=== PATIENT | male | born 1960 | race African-American/Black ===

== ENCOUNTER 2017-03-17 14:36 | Emergency (ER) | payer OTHER ==
[~2017-03-17] VITALS: Ht 188 cm; Wt 86.2 kg
[~2017-03-17 14:36] MED LIST: ALLOPURINOL100 M1 ORAL; ALLOPURINOL300 M1 ORAL; BACTRIM DS TAB1 EAC1 ORAL; CHOLESTEROL; COLCHICINE0.6 M1 PO; COLCRYS0.6 M1 PO; CRIXIVAN ORAL; IBUPROFEN600 MG PO; INDOMETHACIN50 MG PO; NKM; NORCO 5-325 TA1 EACH ORAL; UNOBMED
[2017-03-17 14:46] VITALS: BP 118/74
[2017-03-17 15:14] VITALS: BP 118/74
--- NOTE | 2017-03-17 21:00 | Emergency Room Report ---
History of Present Illness General Chief Complaint: Medical Clearance Source: Patient Present Illness HPI The patient is a 56-year-old male presenting in custody for medical clearance. The patient states he did not want to come in and denies any symptoms. The police state that the patient had a bag of heroin in his mouth which he spit out. The patient denies swallowing any drugs. He denies using any drugs besides marijuana. He denies any medical history. He denies any symptoms including nausea, vomiting, dizziness, blurred vision, palpitations, chest pain, shortness of breath Allergies: Coded Allergies: No Known Allergies (Unverified , 11/14/13) Patient History Past Medical History: see triage record Pertinent Family History: none Reviewed Nursing Documentation: PMH: Agreed, PSxH: Agreed Review of Systems All Other Systems: negative except mentioned in HPI Physical Exam Vital Signs Date Time Temp Pulse Resp B/P Pulse Ox O2 Delivery O2 Flow Rate FiO2 03/17/17 14:28 98.2 99 20 116/71 99 Room Air Sp02 EP Interpretation: reviewed, normal General Appearance: no apparent distress, alert, GCS 15, non-toxic Head: normocephalic, atraumatic Eyes: bilateral eye PERRL, bilateral eye normal inspection ENT: hearing grossly normal, normal pharynx, no angioedema, normal voice Neck: full range of motion, supple/symm/no masses Respiratory: chest non-tender, lungs clear, normal breath sounds, no accessory muscle use, no wheezing, speaking full sentences Cardiovascular #1: regular rate, rhythm, no edema, no murmur, no rub Cardiovascular #2: 2+ carotid (R), 2+ carotid (L), 2+ radial (R), 2+ radial (L) , 2+ dorsalis pedis (R), 2+ dorsalis pedis (L) Musculoskeletal: back normal, gait/station normal, normal range of motion, non- tender Neurologic: alert, oriented x3, responsive, motor strength/tone normal, sensory intact, speech normal Psychiatric: judgement/insight normal, memory normal, mood/affect normal, no suicidal/homicidal ideation Skin: normal color, no rash, warm/dry, well hydrated Medical Decision Making PA Attestation Dr. Wolfe is my supervising physician. Patient management was discussed with my supervising physician Diagnostic Impression: Primary Impression: Medical clearance for incarceration ER Course The patient is a 56-year-old male presenting in custody for medical clearance Differential diagnoses considered but not limited to: Drug abuse, anxiety, psychosis, among others Physical exam is unremarkable. Vitals have stayed stable and within normal limits The patient is monitored in the emergency department with no fluctuations. He is deemed medically cleared and will be discharged home. Last Vital Signs Date Time Temp Pulse Resp B/P Pulse Ox O2 Delivery O2 Flow Rate FiO2 03/17/17 15:14 98.1 97 18 118/74 98 Room Air Status: improved Disposition: HOME, SELF-CARE Condition: Improved Departure Forms: [facility] Clearance Additional Instructions: I discussed my findings with the patient. All questions and concerns have been answered. Treatment and medication compliance have been addressed. I advised the patient that they need to follow up with PMD in 3-5 days. Return to ED if symptoms worsen, new symptoms arise, or if needed for any reason. Patient verbalized understanding of discharge instructions. BRITTON RENO Mar 17, 2017 21:00
== END 2017-03-17 15:15 | disposition home or self-care (01) ==
LOC: EDBD 14:36 → EMR 14:49
DX: Z02.89 Encounter for other administrative examinations (principal)
CPT/HCPCS: 99283

== ENCOUNTER 2018-03-15 08:45 | Emergency (ER) | payer OTHER ==
[~2018-03-15] VITALS: Ht 190.5 cm; Wt 86.2 kg
[2018-03-15 08:56] VITALS: BP 127/85
[2018-03-15] MEDS ORDERED: INDOMETHACIN50 MG PO (09:24)
[2018-03-15] MEDS ORDERED: COLCRYS0.6 M1 PO (09:24)
[2018-03-15] MEDS ORDERED: ALLOPURINOL100 M1 ORAL (09:24)
[2018-03-15] MEDS ORDERED: NORCO 5-325 TA1 EACH ORAL (09:24)
[2018-03-15 09:33] VITALS: BP 122/74
--- NOTE | 2018-03-15 13:39 | Emergency Room Report ---
History of Present Illness General Chief Complaint: Pain Source: Patient, Medical Record Present Illness HPI Patient is a 57-year-old male who presented after increased pain to his left hand as well as to his left hip. Patient had prior history of gout. He reportedly had run out of his medications include colchicine and allopurinol. Patient is noted be HIV positive. He reports having a primary care physician. Patient denies any fever. He denies any diarrhea. Pain was worse with movement. Pain is sharp in nature. The patient was noted to have gout multiple joints. Allergies: Coded Allergies: No Known Allergies (Unverified , 11/14/13) Patient History Past Medical History: see triage record Reviewed Nursing Documentation: PMH: Agreed; PSxH: Agreed Nursing Documentation-PMH Past Medical History: No History, Except For Review of Systems All Other Systems: negative except mentioned in HPI Physical Exam Vital Signs Date Time Temp Pulse Resp B/P (MAP) Pulse Ox O2 Delivery O2 Flow Rate FiO2 03/15/18 08:56 98.5 96 18 127/85 95 Room Air 98.4 General Appearance: well appearing, no apparent distress, alert, GCS 15 Head: normocephalic, atraumatic ENT: hearing grossly normal, normal voice Neck: full range of motion, supple Respiratory: no respiratory distress, speaking full sentences Cardiovascular #1: normal peripheral pulses, regular rate, rhythm Musculoskeletal: swelling - swelling left hand, tophi to multiple joints Neurologic: normal inspection, alert, oriented x3, responsive, normal gait Psychiatric: mood/affect normal Skin: no rash Medical Decision Making Diagnostic Impression: Primary Impression: Gout attack ER Course Patient presented for hand pain. Differential diagnosis included was not limited to gout, cellulitis, fracture, among others. Patient has a benign exam and does not appear to require any further imaging or laboratory testing at this time. The patient presented for flareup of his gout. The patient was advised to follow-up with his primary care physician for reexamination treatment 1-2 days. Patient given prescription for pain medications as well as medications for gout treatment. Patient is advised to return for any worsening. Last Vital Signs Date Time Temp Pulse Resp B/P (MAP) Pulse Ox O2 Delivery O2 Flow Rate FiO2 03/15/18 09:33 98.3 99 18 122/74 100 Room Air 98.5 Status: improved Disposition: HOME, SELF-CARE Condition: Stable Scripts Allopurinol* (ALLOPURINOL*) 100 Mg Tablet 100 MG ORAL DAILY, #10 TAB Prov: Duran Rascon MD 03/15/18 Colchicine (COLCRYS) 0.6 Mg Tablet 0.6 MG PO BID for 5 Days, TAB Prov: Duran Rascon MD 03/15/18 Hydrocodone Bit/Acetaminophen 5-325* (NORCO 5-325*) 1 Each Tablet 1 TAB ORAL Q6H PRN for For Pain, #10 TAB 0 Refills Prov: Duran Rascon MD 03/15/18 Indomethacin (INDOMETHACIN) 50 Mg Capsule 50 MG PO TID, #20 CAP Prov: Duran Rascon MD 03/15/18 Referrals: NOT CHOSEN IPA/,REFERRING Patient Instructions: Gout Duran Rascon MD Mar 15, 2018 13:39
== END 2018-03-15 09:35 | disposition home or self-care (01) ==
LOC: EMR 09:25 → EDBD 09:25 → EMR 09:35
DX: M10.9 Gout, unspecified (principal)
CPT/HCPCS: 99283

== ENCOUNTER 2019-03-24 07:21 | Emergency (ER) | payer OTHER ==
[~2019-03-24] VITALS: Ht 190.5 cm; Wt 87.1 kg
[2019-03-24 07:44] VITALS: BP 128/86
--- NOTE | 2019-03-24 07:45 | NUR ---
ED Nurse Note: pt walked in states he has a boil on left inner thigh . Pt said he saw his PMD yesterday and was instructed to come to ED. Pt awaiting neeraj velez .
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
[2019-03-24] MEDS ORDERED: Bactrim-DS 1 tab ORAL ONE (08:00)
[2019-03-24] MEDS ORDERED: Lidocaine 1% 10mg/ml/Epi 0.005mg/ml 30ml vial INJ ONE (08:00)
[2019-03-24] MEDS ORDERED: Tetanus/Diptheria/Pertussis IM ONE (08:00)
[2019-03-24] MEDS ORDERED: BACTRIM DS TAB1 EAC1 ORAL (08:23)
[2019-03-24] MEDS ORDERED: IBUPROFEN600 MG ORAL (08:23)
[2019-03-24 08:36] VITALS: BP 128/86
--- NOTE | 2019-03-24 08:37 | NUR ---
ED Nurse Note: I&D done by neeraj pt medicated NAD .
--- NOTE | 2019-03-24 08:38 | NUR ---
ER DISCHARGE NOTE: Patient is cleared to be discharged per ERMD, pt is aox4, on room air, with stable vital signs. pt was given dc and prescription instructions, pt was able to verbalize understanding, pt id band removed without complications. pt is able to ambulate with steady gait. pt took all belongings.
== END 2019-03-24 08:39 | disposition home or self-care (01) ==
LOC: EMR 08:10
DX: L02.214 Cutaneous abscess of groin (principal); Z23 Encounter for immunization; F17.290 Nicotine dependence, other tobacco product, uncomplicated
CPT/HCPCS: 10060; 90471; 90715; 99283

== ENCOUNTER 2019-03-28 09:25 | Emergency (ER) | payer OTHER ==
[~2019-03-28] VITALS: Ht 190.5 cm; Wt 88.5 kg
[2019-03-28 09:25] VITALS: BP 132/93
[~2019-03-28 09:25] MED LIST changes: +IBUPROFEN600 MG ORAL
--- NOTE | 2019-03-28 09:25 | NUR ---
ED Nurse Note: pt walked in to Ed for dressing changed. per pt, seen by [facility] on 03/24/19 for abscess and I&D done. packing dressing done and instructed pt to come back on Sun but pt unable to come. no drainage or odor noted. AAO x4. respirations even and non-labored noted. will wait for the further order.
--- NOTE | 2019-03-28 10:03 | Emergency Room Report ---
History of Present Illness General Chief Complaint: Wound Recheck/Suture Removal Source: Patient Present Illness HPI The patient had an abscess that was incised and drained on March 24. A drain was placed and he was advised to return to have the drain replaced. He did not follow-up until today. When he change the dressing the drain may have been removed. He denies any fevers or chills. There is decreased pain at the site. Still some swelling there. He is on oral antibiotics at this time. He denies pain to the triage nurse. The patient has a history of HIV and awaiting antiviral treatment. Allergies: Coded Allergies: No Known Allergies (Unverified , 03/24/19) Patient History Past Medical History: see triage record Social History: Reports: smoking Social History Narrative Lives with family and girlfriend Reviewed Nursing Documentation: PMH: Agreed; PSxH: Agreed Nursing Documentation-PMH Past Medical History: No History, Except For Review of Systems Constitutional: Reports: see HPI Musculoskeletal: Denies: joint pain Skin: Reports: see HPI Neurological: Denies: numbness Hematologic/Lymphatic: Denies: swollen glands Physical Exam Vital Signs Date Time Temp Pulse Resp B/P (MAP) Pulse Ox O2 Delivery O2 Flow Rate FiO2 03/28/19 09:25 98.1 85 18 132/93 97 Room Air Sp02 EP Interpretation: reviewed, normal General Appearance: well appearing, no apparent distress, GCS 15 Head: normocephalic Eyes: bilateral eye normal inspection, bilateral eye PERRL ENT: moist mucus membranes Respiratory: speaking full sentences Cardiovascular #1: regular rate, rhythm Gastrointestinal: normal inspection Musculoskeletal: gait/station normal, normal range of motion Neurologic: alert, grossly normal Psychiatric: mood/affect normal Skin: other - Abscess area still open without drainage, there is induration without fluctuance. No erythema Medical Decision Making Diagnostic Impression: Primary Impression: Encounter for postoperative wound check Additional Impression: Abscess ER Course Patient post incision and drainage on March 24 of a left groin abscess. Based on the physical exam the drain was removed by himself inadvertently. There is no evidence of continued drainage at this time. No further treatment is indicated aside from continuing antibiotics and follow-up with his own doctor. Patient stable for outpatient observation and treatment. Last Vital Signs Date Time Temp Pulse Resp B/P (MAP) Pulse Ox O2 Delivery O2 Flow Rate FiO2 03/28/19 10:10 98.1 85 18 132/93 97 Room Air Status: unchanged Disposition: HOME, SELF-CARE Condition: Improved Khoa Patel MD Mar 28, 2019 10:03
[2019-03-28 10:10] VITALS: BP 132/93
--- NOTE | 2019-03-28 10:10 | NUR ---
ER DISCHARGE NOTE: Patient is cleared to be discharged per ERMD, pt is aox4, on room air, with stable vital signs. pt was given dc instructions, pt was able to verbalize understanding, pt id band removed without complications. pt is able to ambulate with steady gait. pt took all belongings.
== END 2019-03-28 10:11 | disposition home or self-care (01) ==
LOC: EMR 10:08
DX: L02.214 Cutaneous abscess of groin (principal); B20 Human immunodeficiency virus [HIV] disease; F17.200 Nicotine dependence, unspecified, uncomplicated
CPT/HCPCS: 99281